=== PATIENT | female | born 1980 | race Two or more races ===

== ENCOUNTER → 2024-06-13 | Outpatient (CLI) | payer BC, OTHER, SELFPAY ==
[2024-06-13 09:55] LABS: Cardiac Risk Estimate 4.2 RATIO (3.7-5.6); Cholesterol 234 mg/dL (132-200); HDL Cholesterol 56 mg/dL (40-60); LDL Cholesterol,Calculated 160 mg/dL (0-130); Triglycerides 92 mg/dL (30-150)
== END | disposition home or self-care (01) ==
PROVIDERS: PCP Family Medicine; Referring Provider Family Medicine; Visit Provider Family Medicine
DX: E78.2 Mixed hyperlipidemia (principal)
CPT/HCPCS: 36415; 80061

== ENCOUNTER → 2024-09-07 | Outpatient (CLI) | payer BC, OTHER, SELFPAY ==
[2024-09-07 08:44] LABS: Cardiac Risk Estimate 4.9 RATIO (3.7-5.6); Cholesterol 234 mg/dL (132-200); HDL Cholesterol 48 mg/dL (40-60); LDL Cholesterol,Calculated 159 mg/dL (0-130); Triglycerides 134 mg/dL (30-150)
[2024-09-07 08:54] LABS: Glucose Estimated Average 103 mg/dL (80-131); Hemoglobin A1C 5.2 % Hgb (4.8-6.0)
== END | disposition home or self-care (01) ==
LOC: COPL 07:17
PROVIDERS: PCP Family Medicine; Referring Provider Family Medicine; Visit Provider Family Medicine
DX: E78.2 Mixed hyperlipidemia (principal)
CPT/HCPCS: 36415; 80061; 83036

== ENCOUNTER → 2025-01-16 | Outpatient (CLI) | payer BC, OTHER, SELFPAY ==
[2025-01-16 09:28] LABS: Cardiac Risk Estimate 3.8 RATIO (3.7-5.6); Cholesterol 230 mg/dL (132-200); HDL Cholesterol 61 mg/dL (40-60); LDL Cholesterol,Calculated 156 mg/dL (0-130); Triglycerides 66 mg/dL (30-150)
== END | disposition home or self-care (01) ==
LOC: COPL 07:48
PROVIDERS: PCP Family Medicine; Referring Provider Family Medicine; Visit Provider Family Medicine
DX: E78.2 Mixed hyperlipidemia (principal)
CPT/HCPCS: 36415; 80061